=== PATIENT | female | born 1950 | race Caucasian/White ===

== ENCOUNTER → 2023-07-15 | Outpatient (REF) | payer OTHER, SELFPAY | LOC: DHSLP | PROVIDERS: ATTENDING PHYSICIAN Internal Medicine Critical Care Medicine; FAMILY PHYSICIAN Family Medicine | DX: G47.33 Obstructive sleep apnea (adult) (pediatric) (principal); R06.83 Snoring | CPT/HCPCS: 95800 ==

== ENCOUNTER → 2023-09-13 10:26 | Outpatient (REF) | payer OTHER, SELFPAY | LOC: HWRAD 10:26 | PROVIDERS: ATTENDING PHYSICIAN Internal Medicine Critical Care Medicine; FAMILY PHYSICIAN Family Medicine | DX: J44.9 Chronic obstructive pulmonary disease, unspecified (principal); R06.02 Shortness of breath; Z86.16 Personal history of COVID-19 | CPT/HCPCS: 71250 ==

== ENCOUNTER → 2023-10-17 14:56 | Outpatient (REF) | payer OTHER, SELFPAY | LOC: HWRAD 14:56 | PROVIDERS: ATTENDING PHYSICIAN Otolaryngology; FAMILY PHYSICIAN Family Medicine | DX: J32.0 Chronic maxillary sinusitis (principal); R09.81 Nasal congestion | CPT/HCPCS: 70486 ==

== ENCOUNTER → 2024-04-24 08:57 | Outpatient (REF) | payer OTHER, SELFPAY | LOC: HWRAD 08:57 | PROVIDERS: ATTENDING PHYSICIAN Family Medicine | DX: N39.0 Urinary tract infection, site not specified (principal); D17.71 Benign lipomatous neoplasm of kidney | CPT/HCPCS: 76775 ==

== ENCOUNTER → 2024-10-09 16:36 | Outpatient (REF) | payer OTHER, SELFPAY | LOC: RAD 16:36 | PROVIDERS: ATTENDING PHYSICIAN Family Medicine | DX: I82.4Y2 Acute embolism and thrombosis of unspecified deep veins of left proximal lower extremity (principal) | CPT/HCPCS: 93971 ==

== ENCOUNTER 2024-10-10 04:22 | Inpatient (IN) | payer OTHER, SELFPAY ==
[2024-10-09 18:53] VITALS: BP 162/74
[2024-10-10] VITALS (31 sets, daily range): BP systolic 104–145; BP diastolic 47–89; BMI 24.5; BMI 23.9
[2024-10-10 00:41] LABS: % Basophils 0.5 % (0-2); % Eosinophils 2.9 % (0-6); % Immature Granulocytes 0.4 % (0-0.5); % Lymphocytes 24.1 % (20.5-51.1); % Monocytes 9.8 % (1.7-9.3); % Neutrophils 62.3 % (42.2-75.2); Absolute Basophils 0.1 10^3/uL (0-0.2); Absolute Eosinophils 0.4 10^3/uL (0-0.7); Absolute Immature Granulocytes 0.1 10^3/uL (0-0.05); Absolute Monocytes 1.2 10^3/uL (0.1-0.6); Absolute Neutrophils 7.6 10^3/uL (1.4-6.5); Hematocrit 39.5 % (37.0-47.0); Hemoglobin 12.5 g/dL (12.0-16.0); Mean Corp Hgb Conc. 31.6 g/dL (33.0-37.0); Mean Corpuscular Volume 91.6 fL (81.0-99.0); Nucleated Red Blood Cells % 0 %; Platelet Count 239 10^3/uL (130-400); Red Blood Cell Count 4.31 10^6/uL (4.20-5.40); Red Cell Dist. Width 14.9 % (11.5-14.5); White Blood Cell Count 12.2 10^3/uL (4.8-10.8)
[2024-10-10 01:00] LABS: INR 0.98; PT 13.3 Sec (11.4-14.6)
[2024-10-10 01:01] LABS: ALT (SGPT) 15 U/L (0-35); APTT 27.5 Sec (23.4-35.0); AST (SGOT) 29 U/L (14-36); Albumin 4.8 g/dl (3.5-5.0); Alkaline Phosphatase 97 U/L (38-126); Blood Urea Nitrogen 16 mg/dl (7-17); Calcium 9.7 mg/dl (8.4-10.2); Carbon Dioxide 22 mmol/L (22-30); Chloride 102 mmol/L (98-107); Glucose 92 mg/dl (70-99); Potassium 4.3 mmol/L (3.5-5.1); Sodium 138 mmol/L (135-145); Total Bilirubin 1.6 mg/dl (0.2-1.3); Total Protein 7.5 g/dl (6.3-8.2); eGFR > 60.00
[2024-10-10 01:10] LABS: Troponin I < 0.012 ng/ml
--- NOTE | 2024-10-10 01:16 | ED.GENMED ---
History of Present Illness
<Ines Ornelas DO - Last Filed: 10/10/24 17:20>
General
Chief Complaint: DVT/Possible Blood Clot
Time Seen by Provider: 10/09/24 23:50
History of Present Illness
History of Present Illness:
74-year-old female without any significant past medical history presenting to the emergency department for left lower extremity swelling. Patient reports symptoms started about 2 days ago. Denies any inciting trauma. Denies any recent immobility
or surgery. Reports pain from the thigh to the foot. Denies any history of blood clots. She was sent to the hospital for an outpatient ultrasound today to rule out DVT which was noted to be positive, so subsequently sent to the ER. Denies
numbness or tingling to the extremity. Denies fever. Denies chest pain or difficulty breathing. Denies any known clotting issues. Denies any additional acute medical
Past History
<Ines Ornelas DO - Last Filed: 10/10/24 17:20>
Past History
ED Past Medical History: None
ED Past Surgical History: Appendectomy and Orthopedic
Social History
Tobacco: Former smoker
Phy Exam
<Ines Ornelas DO - Last Filed: 10/10/24 17:20>
Physical Exam
Physical Exam:
General: Well-appearing, no clinical signs of dehydration, nontoxic and in no acute distress
HEENT: protecting airway
Neck: appears supple
CV: Normal heart rate, regular rhythm
Resp: No accessory muscle use, no increased work of breathing, lungs clear to auscultation bilaterally
Abd: No distention
Extremities: Swelling to the left lower extremity comparison to the right with erythema and slight warmth. Distal pulses and sensation intact. Generalized tenderness on palpation
Neuro: alert, no focal neurologic deficit
: deferred
Rectal: deferred
Psych: Normal affect
Skin: Intact
Course
<Ines Ornelas DO - Last Filed: 10/10/24 17:20>
Orders/Labs/Results
Orders:
Orders
10/10/24 00:08
Electrocardiogram (*1) Urgent
Reason for Study: Other
Other Reason for Exam: DVT
EKG- Treatment ONCE
10/10/24 00:32
Complete Blood Count/With Diff Urgent
Comprehensive Metabolic Panel Urgent
Fibrinogen Urgent
Comment: ADD ON
PTT Urgent
Prothrombin Time Urgent
Troponin I Urgent
10/10/24 01:15
Ct Cta A/P W/Wo Urgent
Reason For Exam: CT Venogram, L-DVT, evaluate for external iliac thrombus
10/10/24 03:29
Heparin 5,000 units IV NOW STA
Nursing to Place Non Medication Order As Directed
Physician Order: PTT 6 hours after initial start of Heparin infusion
Above order entered?: Yes
10/10/24 03:30
Heparin 10865 Units/250 ml 25,000 units in 250 ml IV PER PROTOCOL
Weight to be used for heparin protocol in kilograms (kg):: 62.6
Protocol:: DVT/PE
PTT Goal Range to be used:: PTT 73 to 111 seconds
Order type:: Initial
INITIAL Infusion Dose (UNITS/KG/hr) & then follow protocol:: 18 units/kg/hr
Infusion Dose in UNITS/hr & then follow protocol (UNITS/hr):: 1,100
INFUSION RATE in mL/hr & then follow protocol (mL/hr):: 11
For DVT/PE algorithm, re-bolus for low PTT?: Yes
PTT less than or equal to 64 seconds:: Re-bolus 80 units/kg (max 10,000units). Increase by 300 units/hr
(+ 3mL/hr)
PTT 64.1 to 72.9 seconds:: Re-bolus 40 units/kg (max 5,000 units). Increase by 100 units/hr
(+ 1mL/hr)
PTT 73 to 111 seconds:: Target Range. No change in rate.
PTT 111.1 to 130.9 seconds:: Decrease rate by 100 units/hr (- 1 mL/hr)
PTT 131 to 199.9 seconds:: HOLD for 1 hr. Then decrease by 200 units/hr (- 2mL/hr)
PTT greater than or equal to 200 seconds:: HOLD for 2 hrs & Notify Provider. Then decrease by 300 units/hr
(- 3mL/hr)
Lab follow-up:: Each change, PTT q6h until 2 consecutive are therapeutic. Then
PTT daily.
10/10/24 03:35
Heparin 5,000 units IV PRN PRN
10/10/24 03:36
Heparin 2,500 units IV PRN PRN
10/10/24 04:07
Admit/Transfer Patient As Directed
Co-Sign Provider:
Level of Care: Inpatient admission
Assign to:: Medical/Surgical
Physician / Group: hospitalist
Diagnosis: Left lower extremity DVT
Reason for Hospitalization: left lower extremity DVT
Expected length of stay greater than two midnights?: Yes
ELOS- Estimated Length of Stay in days: 2
I certify the patient meets the requirements for IP care: Yes
10/10/24 04:08
PRN Pain Medication Management As Directed
May give lesser potent ordered pain med per pt: Yes
preference::
Protocol:: Medication orders for pain may be administered in a
manner that supports deferring to patient preference
when the pt is:
- Requesting an ordered lesser potent pain medication.
Least to most potent pain medications are defined
as: acetaminophen < NSAID < tramadol < opioids
(morphine, oxycodone, hydromorphone).
- Requesting a lesser dose of the same medication IF
ORDERED.
- Requesting a less intrusive route of administration
if both routes are prescribed by the provider (PO <
IV).
10/10/24 04:09
Code Status As Directed
Resuscitation Status: Full Code
10/10/24 Breakfast
NPO
Allow oral meds: Yes
Allow clear liquids: Sips of Clears
NPO with Ice Chips: Yes
10/10/24 06:18
Acetaminophen [Tylenol] 650 mg PO Q4HPRN PRN
Bisacodyl [Dulcolax] 10 mg RECTAL [id number] PRN
Docusate W/Senna [Senokot-S] 1 tablet PO BIDPRN PRN
Ketorolac [Toradol] 10 mg IV Q6HPRN PRN
Ondansetron Injectable [Zofran] 4 mg IV Q6HPRN PRN
Polyethylene Glycol Powder [Miralax] 17 grams PO DAILYPRN PRN
10/10/24 06:18
Vascular Surgery Consult Routine
Consulting Provider: Mariola Oh
Was physician already notified: Yes
Reason for consult: extensive DVT on left involving int & ext iliacs
VTE Contraindication Routine
VTE Mechanical Device Contraindication: Medical Contraindication
Pharmocologic Contraindication: Medical Contraindication
Heparin Protocol- PTT Orders As Directed
PTT per Heparin protocol: -Obtain CBC and baseline PTT - if not already collected.
-Obtain PTT 6 hours from start of infusion. Then, every 6 hours until 2 consecutive
PTT's are therapeutic. Then, PTT Daily.
-With each rate change, obtain PTT every 6 hours until 2 consecutive PTT's are
therapeutic. Then, PTT Daily.
Activity As Directed
Activity Level: As Tolerated
Notify MD As Directed
Notify physician if: PTT is greater than or equal to 200.
Vital Signs As Directed
Frequency: Per unit guidelines
10/10/24 08:00
Budesonide/Formoterol 160/4.5 [Symbicort 160/4.5 Mcg Inhaler] 2 puff INH R BID
10/10/24 09:51
Fibrinogen Routine
PTT Routine
Prothrombin Time Routine
Is patient on Coumadin/Warfarin?: Unknown
Comment: ADD ON TO MORNING LABS
10/12/24 06:00
Complete Blood Count/No Diff Q2D
Comment: notify provider: Platelet count < 130,000 or decrease by 50% from baseline
10/14/24 06:00
Complete Blood Count/No Diff Q2D
Comment: notify provider: Platelet count < 130,000 or decrease by 50% from baseline
10/16/24 06:00
Complete Blood Count/No Diff Q2D
Comment: notify provider: Platelet count < 130,000 or decrease by 50% from baseline
10/18/24 06:00
Complete Blood Count/No Diff Q2D
Comment: notify provider: Platelet count < 130,000 or decrease by 50% from baseline
10/20/24 06:00
Complete Blood Count/No Diff Q2D
Comment: notify provider: Platelet count < 130,000 or decrease by 50% from baseline
10/22/24 06:00
Complete Blood Count/No Diff Q2D
Comment: notify provider: Platelet count < 130,000 or decrease by 50% from baseline
10/24/24 06:00
Complete Blood Count/No Diff Q2D
Comment: notify provider: Platelet count < 130,000 or decrease by 50% from baseline
10/26/24 06:00
Complete Blood Count/No Diff Q2D
Comment: notify provider: Platelet count < 130,000 or decrease by 50% from baseline
Abnormal Lab Results
10/10/24
00:32
WBC 12.2 H 10^3/uL
(4.8-10.8)
MCHC 31.6 L g/dL
(33.0-37.0)
RDW 14.9 H %
(11.5-14.5)
Abs Immat Gran (auto) 0.1 H 10^3/uL
(0-0.05)
Absolute Neuts (auto) 7.6 H 10^3/uL
(1.4-6.5)
Absolute Monos (auto) 1.2 H 10^3/uL
(0.1-0.6)
Monocytes % 9.8 H %
(1.7-9.3)
Fibrinogen 490 H MG/DL
(199-459)
Total Bilirubin 1.6 H mg/dl
(0.2-1.3)
10/10/24 00:32
10/10/24 00:32
Vital Signs
Initial and Last Documented VS:
Initial Vital Signs
Temp Pulse Resp BP Pulse Ox
97.9 F 89 18 162/74 97
10/09/24 18:53 10/09/24 18:53 10/09/24 18:53 10/09/24 18:53 10/09/24 18:53
Last Documented Vital Signs
Temp Pulse Resp BP Pulse Ox
99.3 F 85 19 122/59 98
10/10/24 15:00 10/10/24 14:15 10/10/24 14:15 10/10/24 14:15 10/10/24 15:09
<Vanessa Sherwood, DO - Last Filed: 10/10/24 06:33>
Orders/Labs/Results
Orders:
Orders
10/10/24 00:08
Electrocardiogram (*1) Urgent
Reason for Study: Other
Other Reason for Exam: DVT
EKG- Treatment ONCE
10/10/24 00:32
Complete Blood Count/With Diff Urgent
Comprehensive Metabolic Panel Urgent
Fibrinogen Urgent
Comment: ADD ON
PTT Urgent
Prothrombin Time Urgent
Troponin I Urgent
10/10/24 01:15
Ct Cta A/P W/Wo Urgent
Reason For Exam: CT Venogram, L-DVT, evaluate for external iliac thrombus
10/10/24 03:29
Heparin 5,000 units IV NOW STA
Nursing to Place Non Medication Order As Directed
Physician Order: PTT 6 hours after initial start of Heparin infusion
Above order entered?: Yes
10/10/24 03:30
Heparin 79619 Units/250 ml 25,000 units in 250 ml IV PER PROTOCOL
Weight to be used for heparin protocol in kilograms (kg):: 62.6
Protocol:: DVT/PE
PTT Goal Range to be used:: PTT 73 to 111 seconds
Order type:: Initial
INITIAL Infusion Dose (UNITS/KG/hr) & then follow protocol:: 18 units/kg/hr
Infusion Dose in UNITS/hr & then follow protocol (UNITS/hr):: 1,100
INFUSION RATE in mL/hr & then follow protocol (mL/hr):: 11
For DVT/PE algorithm, re-bolus for low PTT?: Yes
PTT less than or equal to 64 seconds:: Re-bolus 80 units/kg (max 10,000units). Increase by 300 units/hr
(+ 3mL/hr)
PTT 64.1 to 72.9 seconds:: Re-bolus 40 units/kg (max 5,000 units). Increase by 100 units/hr
(+ 1mL/hr)
PTT 73 to 111 seconds:: Target Range. No change in rate.
PTT 111.1 to 130.9 seconds:: Decrease rate by 100 units/hr (- 1 mL/hr)
PTT 131 to 199.9 seconds:: HOLD for 1 hr. Then decrease by 200 units/hr (- 2mL/hr)
PTT greater than or equal to 200 seconds:: HOLD for 2 hrs & Notify Provider. Then decrease by 300 units/hr
(- 3mL/hr)
Lab follow-up:: Each change, PTT q6h until 2 consecutive are therapeutic. Then
PTT daily.
10/10/24 03:35
Heparin 5,000 units IV PRN PRN
10/10/24 03:36
Heparin 2,500 units IV PRN PRN
10/10/24 04:07
Admit/Transfer Patient As Directed
Co-Sign Provider:
Level of Care: Inpatient admission
Assign to:: Medical/Surgical
Physician / Group: hospitalist
Diagnosis: Left lower extremity DVT
Reason for Hospitalization: left lower extremity DVT
Expected length of stay greater than two midnights?: Yes
ELOS- Estimated Length of Stay in days: 2
I certify the patient meets the requirements for IP care: Yes
10/10/24 04:08
PRN Pain Medication Management As Directed
May give lesser potent ordered pain med per pt: Yes
preference::
Protocol:: Medication orders for pain may be administered in a
manner that supports deferring to patient preference
when the pt is:
- Requesting an ordered lesser potent pain medication.
Least to most potent pain medications are defined
as: acetaminophen < NSAID < tramadol < opioids
(morphine, oxycodone, hydromorphone).
- Requesting a lesser dose of the same medication IF
ORDERED.
- Requesting a less intrusive route of administration
if both routes are prescribed by the provider (PO <
IV).
10/10/24 04:09
Code Status As Directed
Resuscitation Status: Full Code
10/10/24 Breakfast
NPO
Allow oral meds: Yes
Allow clear liquids: Sips of Clears
NPO with Ice Chips: Yes
10/10/24 06:18
Acetaminophen [Tylenol] 650 mg PO Q4HPRN PRN
Bisacodyl [Dulcolax] 10 mg RECTAL [id number] PRN
Docusate W/Senna [Senokot-S] 1 tablet PO BIDPRN PRN
Ketorolac [Toradol] 10 mg IV Q6HPRN PRN
Ondansetron Injectable [Zofran] 4 mg IV Q6HPRN PRN
Polyethylene Glycol Powder [Miralax] 17 grams PO DAILYPRN PRN
10/10/24 06:18
Vascular Surgery Consult Routine
Consulting Provider: Mariola Oh
Was physician already notified: Yes
Reason for consult: extensive DVT on left involving int & ext iliacs
VTE Contraindication Routine
VTE Mechanical Device Contraindication: Medical Contraindication
Pharmocologic Contraindication: Medical Contraindication
Heparin Protocol- PTT Orders As Directed
PTT per Heparin protocol: -Obtain CBC and baseline PTT - if not already collected.
-Obtain PTT 6 hours from start of infusion. Then, every 6 hours until 2 consecutive
PTT's are therapeutic. Then, PTT Daily.
-With each rate change, obtain PTT every 6 hours until 2 consecutive PTT's are
therapeutic. Then, PTT Daily.
Activity As Directed
Activity Level: As Tolerated
Notify MD As Directed
Notify physician if: PTT is greater than or equal to 200.
Vital Signs As Directed
Frequency: Per unit guidelines
10/10/24 08:00
Budesonide/Formoterol 160/4.5 [Symbicort 160/4.5 Mcg Inhaler] 2 puff INH R BID
10/10/24 09:51
Fibrinogen Routine
PTT Routine
Prothrombin Time Routine
Is patient on Coumadin/Warfarin?: Unknown
Comment: ADD ON TO MORNING LABS
10/12/24 06:00
Complete Blood Count/No Diff Q2D
Comment: notify provider: Platelet count < 130,000 or decrease by 50% from baseline
10/14/24 06:00
Complete Blood Count/No Diff Q2D
Comment: notify provider: Platelet count < 130,000 or decrease by 50% from baseline
10/16/24 06:00
Complete Blood Count/No Diff Q2D
Comment: notify provider: Platelet count < 130,000 or decrease by 50% from baseline
10/18/24 06:00
Complete Blood Count/No Diff Q2D
Comment: notify provider: Platelet count < 130,000 or decrease by 50% from baseline
10/20/24 06:00
Complete Blood Count/No Diff Q2D
Comment: notify provider: Platelet count < 130,000 or decrease by 50% from baseline
10/22/24 06:00
Complete Blood Count/No Diff Q2D
Comment: notify provider: Platelet count < 130,000 or decrease by 50% from baseline
10/24/24 06:00
Complete Blood Count/No Diff Q2D
Comment: notify provider: Platelet count < 130,000 or decrease by 50% from baseline
10/26/24 06:00
Complete Blood Count/No Diff Q2D
Comment: notify provider: Platelet count < 130,000 or decrease by 50% from baseline
Abnormal Lab Results
10/10/24
00:32
WBC 12.2 H 10^3/uL
(4.8-10.8)
MCHC 31.6 L g/dL
(33.0-37.0)
RDW 14.9 H %
(11.5-14.5)
Abs Immat Gran (auto) 0.1 H 10^3/uL
(0-0.05)
Absolute Neuts (auto) 7.6 H 10^3/uL
(1.4-6.5)
Absolute Monos (auto) 1.2 H 10^3/uL
(0.1-0.6)
Monocytes % 9.8 H %
(1.7-9.3)
Fibrinogen 490 H MG/DL
(199-459)
Total Bilirubin 1.6 H mg/dl
(0.2-1.3)
10/10/24 00:32
10/10/24 00:32
Vital Signs
Initial and Last Documented VS:
Initial Vital Signs
Temp Pulse Resp BP Pulse Ox
97.9 F 89 18 162/74 97
10/09/24 18:53 10/09/24 18:53 10/09/24 18:53 10/09/24 18:53 10/09/24 18:53
Last Documented Vital Signs
Temp Pulse Resp BP Pulse Ox
99.3 F 85 19 122/59 98
10/10/24 15:00 10/10/24 14:15 10/10/24 14:15 10/10/24 14:15 10/10/24 15:09
<Ines Ornelas DO - Last Filed: 10/10/24 17:20>
MDM/Problems Addressed
MDM/Problems Addressed:
74-year-old female without significant past medical history presenting for known left lower extremity DVT with pain and swelling. Vital signs are significant for mild hypertension, however resolved without intervention.
On exam patient is resting comfortably, no acute distress or discomfort. She is presently hemodynamically stable. Ultrasound obtained outpatient, reviewed with significant thrombus burden to the left common femoral, popliteal, peroneal, posterior
tibial. Without present concern for PE. Patient denies chest pain or difficulty breathing. No tachycardia, no hypotension. In discussion with vascular surgery regarding if thrombus candidate, recommending CT angio of the abdomen and pelvis.
Will also obtain the chest to ensure no PE. Plan for screening laboratory analysis. Per vascular, if thrombus does not include external iliac, can be treated with outpatient anticoagulation.
<Ines Ornelas DO - Last Filed: 10/10/24 17:20>
*EKG
Interpreted by ED Provider?: Yes
EKG Intrepretation Date: 10/10/24
EKG Intrepretation Time: :
Interpretation: normal
Heart Rate: 80
Rate: normal
Rhythm: sinus
[place]: normal axis
Interval: normal interval
QRS Pattern: normal QRS
Ischemia: no ischemia
*Critical Care Note
Total Time (30-74mins, 75-104mins- exclusive of procedures): Not Applicable
<Vanessa Sherwood DO - Last Filed: 10/10/24 06:33>
*Radiology
Radiology exam reviewed: radiology read reviewed (CTA abdomen/pelvis shows DVT in the left internal and external iliac veins which are expanded.)
*Pulse Oximetry
Patient hypoxic: no
<Vanessa Sherwood DO - Last Filed: 10/10/24 06:33>
Update Note
Update Note:
03:30
CTA abdomen/pelvis shows DVT involving the left internal and external iliac veins which are expanded.
As per recommendations from vascular surgery, will admit to hospital service, initiate heparin drip and keep n.p.o. status.
ED Attending Note
<Ines Ornelas DO - Last Filed: 10/10/24 17:20>
-
Portions of this chart may have been created with voice recognition software.� Occasional wrong word or��sound alike� substitutions may have occurred due to the inherent limitations of voice recognition software.
Discharge Plan
Departure
Patient Disposition: Admit
Date of Disposition: 10/10/24
Time of Disposition: 03:28
Admit to: Med/Surg
Admit to doctor: Jocy
Presentation/result/management discussed w/ accepting MD/DO: Hospitalist
Condition: Serious
Discharge Problem:
extensive LLE DVT
Interventions
Interventions:
*Risk Screen - Suicide Last Done: 10/09/24 18:53
*General Assessment Last Done: 10/09/24 18:53
*Neglect/Abuse Screening Last Done: 10/09/24 18:53
ED- Fall Risk Assessment Last Done: 10/10/24 04:10
*ED COVID-19 Vaccine History Last Done: 10/10/24 00:35
*Nursing Disposition Last Done: 10/10/24 05:49
ED- Cardiac Assessment Last Done: 10/10/24 04:10
ED- Pulmonary Assessment Last Done: 10/10/24 04:10
ED-Peripheral Vascular Assessment Last Done: 10/10/24 04:10
ED-Skin Assessment Last Done: 10/10/24 04:10
Discharge Date and Time
Discharge Date/Time: 10/10/24 05:49
--- NOTE | 2024-10-10 03:33 | EDRN ---
Called pharmacy to verify heparin infusion
[2024-10-10] MEDS: HEPARIN 5000 UNITS IV (03:48)
[2024-10-10] MEDS: HEPARIN 25000 UNITS/250 ML IV (03:48)
--- NOTE | 2024-10-10 03:56 | HPS.HSE ---
Family Physician
-
Family Physician: Asa Tucker
Chief Complaint
-
Left leg swelling
History of Present Illness
This is a 74-year-old female with past medical history of prior appendicitis status post appendectomy and status post cholecystectomy presents to the emergency department with 2 days of left lower extremity swelling.
Patient reports sudden onset of swelling just in the left lower extremity with mild erythema. She was evaluated by our physician who recommended ultrasound showing a DVT for which she was referred to the emergency department because it was a
somewhat extensive. Patient denies any prior history of blood clots. She has no recent hospitalizations. She has no recent travel. She had no recent immobilization or injuries. She has no family history of clotting or bleeding disorders. She
denies any medications except for occasional use of inhalers. She has been active as she usually is. She reports some inguinal pain on the left for the last 2 days as well. Denies any urinary symptoms. She reports right lower abdominal/flank
pain for several weeks to months that is intermittent and associated with movement occasionally.
She has no prior history of malignancy.
In the emergency department she was afebrile, blood pressure was 134/67 with a pulse of 94 and she was satting at 98% on room air. ECG showed normal sinus rhythm at a rate of 80. Troponin was 0.012. CBC was unremarkable with a white count of
12.2. Electrolytes BUN/creatinine were all in normal range. LFTs were normal except for slight elevation in total bilirubin to 1.6.
She had a CT of the abdomen pelvis with contrast showing DVT in the left internal and external iliac veins which have expanded, nonocclusive thrombus in the left common femoral and femoral veins which could incompletely assessed, left common iliac
vein is decreased in size behind the left common iliac artery, does not opacify normally suggested that there may be a component of May-Thurner syndrome
Medical History
Past Medical History
Past Medical History: Reports None
Past Surgical History: Reports Appendectomy, Cholecystectomy and Orthopedic
Social History
Tobacco: Former Smoker
Alcohol: Occasional
Drug: None
Personal:
Living: With Family
Employment: Employed
Family History
Family History: Not pertinent
Allergies / Home Medications
Allergies reflects when Allergies were last updated in [employer].
Home Medications with original date entered in [employer]
Allergy/Medication List:
Allergies
Allergy/AdvReac Type Severity Reaction Status Date / Time
acetaminophen [From Percocet] Allergy Unknown Verified 10/10/24 00:41
oxycodone [From Percocet] Allergy Unknown Verified 10/10/24 00:41
Sulfa (Sulfonamide Allergy Unknown Verified 10/10/24 00:41
Antibiotics)
Home Medications
budesonide 160 mcg-glycopyr 9 mcg-formot 4.8 mcg/actuation HFA inhaler ([employer]) 2 inh inhalation BID 10/10/24
Review of Systems
-
History Source: Patient
Constitutional: Reports No Symptoms
EENT: Reports No Symptoms
Respiratory: Reports No Symptoms
Cardiac: Reports No Symptoms
Abdomen/GI: Reports No Symptoms
: Reports No Symptoms
Musculoskeletal: Reports Joint Pain
Skin: Reports Rash
Neurological: Reports No Symptoms
Endocrine: Reports No Symptoms
Hematologic/Lymphatic: Reports No Symptoms
Psych: Reports No Symptoms
Physical Exam
Vital Signs
Vital Signs
Temp Pulse Resp BP Pulse Ox
97.9 F 94 19 134/67 93
10/09/24 18:53 10/10/24 03:00 10/10/24 03:00 10/10/24 03:00 10/10/24 03:00
Physical Exam
General: Well Developed, Well Nourished, No Apparent Distress and Comfortable
HEENT: NormoCephalic, Anicteric, Moist mucous membranes and Atraumatic
Respiratory: Clear
Cardiac: S1/S2 and Regular Rhythm
Breast: Deferred by me
GI: Soft, Non Tender, Non Distended and Normal Bowel Sounds
Rectal: Deferred by Provider
Genito-urinary: Deferred by me
Musculoskeletal: No Clubbing, No Cyanosis and Edema, Left Lower Extremity
Skin: Warm and Dry
Neuro: AO x 3 and Nonfocal/grossly intact
Hematologic/Lymphatic: No Lymphadenopathy
Psych: Calm
Laboratory Results
-
10/10/24 00:32
10/10/24 00:32
Laboratory Results
PT 13.3 Sec (11.4-14.6) 10/10/24 00:32
INR 0.98 10/10/24:32
APTT 27.5 Sec (23.4-35.0) 10/10/24 00:32
Total Bilirubin 1.6 mg/dl (0.2-1.3) H 10/10/24 00:32
AST 29 U/L (14-36) 10/10/24 00:32
ALT 15 U/L (0-35) 10/10/24 00:32
Alkaline Phosphatase 97 U/L (38-126) 10/10/24 00:32
Troponin I < 0.012 ng/ml 10/10/24 00:32
Data Reviewed
-
CT Scan: Report Reviewed by me
Medical Tests (Nuc Med, Echo, EKG etc): Image Personally Visualized and interpreted
Lab Data: Labs Reviewed by me
Old Records: Reviewed
Impression/Plan
-
IMPRESSION:
74 y.o female with left leg swelling x 2 days, new onset DVT found that appears unprovoked. 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
findings. No dolens on exam but CT scan shows fairly exensive clot. No SOB, CURTIS, chest pain. ECG normal. Troponin normal.
PLAN:
1. DVT - New onset DVT with possible May-Thurner syndrome. Extensive clot burden without dolens.
- admit to med/surg
- start heparin gtt for now
- vascular surgery notified clot involving internal and external iliacs and possible may-thurner
- NPO
- recommend routine age and risk appropriate screening: Xray, colonosocpy and mammogram as outpatient
- would await vascular eval before pursuing further hypercoag w/u
Code status - Full code
[2024-10-10 06:48] LABS: Fibrinogen 490 MG/DL (199-459)
[2024-10-10] MEDS: SYMBICORT 160/4.5 MCG INHALER 2 PUFF INH ×2 (07:49→19:58)
[2024-10-10] MEDS: SPIRIVA RESPIMAT 2.5 MCG 2 PUFF INH (07:49)
--- NOTE | 2024-10-10 10:05 | W.SUR.PREOP ---
Pre-Operative Surgical Note
-
I have examined this patient prior to the performance of the scheduled procedure.
The patient's condition is unchanged from the time of the current History and
Physical and the patient is able to undergo the scheduled procedure.
--- NOTE | 2024-10-10 10:05 | CON.VAS ---
Consultation
Consultation Request
Date/Time Consultation Performed: 10/10/2024
Performing Provider: Mariola Oh MD
Reason for Consultation: LLE DVT
Medical History
-
Chief Complaint: L leg edema
History of Present Illness:
2d hx of LLE edema and pain
venous duplex with extensive LLE DVT
CTV with L CIV and EIV clot down into leg, May thurner compression by artery
Past Medical History
Past Medical History: None
Past Surgical History: Appendectomy
Social History
Tobacco: Non-Smoker
Family History
Family History: Reviewed & Not Pertinent
Allergies / Home Medications
Allergy/AdvReac Type Severity Reaction Status Date / Time
acetaminophen [From Percocet] Allergy Unknown Verified 10/10/24 00:41
oxycodone [From Percocet] Allergy Unknown Verified 10/10/24 00:41
Sulfa (Sulfonamide Allergy Unknown Verified 10/10/24 00:41
Antibiotics)
�Medication �Instructions �Recorded �Confirmed �Type
budesonide 160 mcg-glycopyr 9 2 inh inhalation BID 10/10/24 10/10/24 History
mcg-formot 4.8 mcg/actuation HFA
inhaler (Breztri Aerosphere)
Physical Exam
Vital Signs
Temp Pulse Resp BP Pulse Ox
98 F 88 16 135/67 97
10/10/24 07:00 10/10/24 07:53 10/10/24 07:53 10/10/24 07:00 10/10/24 07:53
Lab Results
10/10/24 00:32
10/10/24 00:32
Troponin I < 0.012 ng/ml 10/10/24 00:32
Physical Exam
General: Well Developed and Well Nourished
HEENT: Normocephalic
Respiratory: Clear
GI: Soft and Non Tender
Musculoskeletal: Edema (mild LLE edema) and Other (no cyanosis, compartments soft)
Skin: Warm
Neuro: AO x 3
Assessment / Plan
-
LLE DVT with CIV and EIV involvement and May Thurner compression
- NPO
- heparin gtt
- OR for lytic catheter placement
- plan for second look and IVUS with likely stent in 24h
Data Reviewed
-
CT Scan: Image Personally Visualized and interpreted
Ultrasound: Image Personally Visualized and interpreted
Labs: Labs Reviewed by me
[2024-10-10] MEDS: CATHFLO/ACTIVASE INF CATH ×2 (11:43)
[2024-10-10] MEDS: NSS INF CATH (11:43)
[2024-10-10] MEDS: NSS 1000 IV (12:00)
[2024-10-10 12:13] LABS: Fibrinogen 490 MG/DL (199-459)
--- NOTE | 2024-10-10 12:29 | PTCARENOTE ---
10/10/24 1230 Report given to DIRECTOR BIOMEDICAL ENGINEERING-Omer. Patient went to vascular Lab for procedure, went to ICU post-op. Pt was on IV Heparin drip prior to procedure. Pt AAO x3. Pt with no complaints prior to procedure except for some pain at L groin area ([place]). VSS, Afebrile
--- NOTE | 2024-10-10 15:13 | PTCARENOTE ---
pt arrived from pacu with left pop venous sheath intact. heparin and alteplase running into sheath. ivf running perif. left dp pt pulses by doppler. pt states no pain. nc2l. breath sounds diminished. nsr seen on monitor.
[2024-10-10] MEDS: TYLENOL 650 MG PO (15:23)
[2024-10-10 15:35] LABS: INR 1.09; PT 14.4 Sec (11.4-14.6)
[2024-10-10] MEDS: CATHFLO/ACTIVASE 16 ML INF CATH ×3 (15:37→23:17)
[2024-10-10] MEDS: CATHFLO/ACTIVASE 16 MG INF CATH ×3 (15:37→23:17)
--- NOTE | 2024-10-10 16:34 | W.PN.HOSP.TC ---
Addendum entered and electronically signed by Mckenna Urena MD 10/10/24 17:59:
I saw and evaluated the patient independently. I reviewed the resident�s note and agree with findings and plan as documented by Dr. Vargas.
GENERAL: well developed, well nourished, female in no apparent distress lying flat post vascular OR
HEENT: NC/AT--O2 NC in place
HEART: regular rate and rhythm, +S1, +S2
LUNGS : clear to auscultation bilaterally
ABDOM: soft, nontender, nondistended, + bowel sounds
EXT: no cyanosis, clubbing, or edema right leg--left leg with edema from groin to foot
NEUROLOGIC: grossly intact
unprovoked DVT - New onset DVT, extensive, involving L internal and external iliac veins, left common femoral vein, popliteal vein, peroneal vein and posterior tibial vein. Possible May-Thurner syndrome--apprec vascular/talk show host---s/p lytic
catheter placement. For IVUS and potentially stenting tomorrow--Continue Heparin drip-- NPO from midnight
DVT proph-- On heparin drip
Code status - Full code
Original Note:
Today's Communication/Plan
-
Status post lytic catheter-Alteplase. Continue Heparin drip
Assessment / Plan
Assessment / Plan
74 y.o female with extensive unprovoked LLE DVT with CT A/P suggestive of May-Thurner syndrome.
DVT - New onset DVT, extensive, involving L internal and external iliac veins, left common femoral vein, popliteal vein, peroneal vein and posterior tibial vein. 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
-s/p lytic catheter placement. For IVUS and potentially stenting tomorrow
-Appreciate vascular surgery
-Continue Heparin drip
- NPO from midnight
DVT ppx: On heparin drip
Code status - Full code
Anticipated Discharge: > 48 hours
Subjective/Interval History
-
Date of Service: October 10, 2024
Objective Data
-
Labs:
Laboratory Results
10/10/24 10/10/24 10/10/24
09:51 11:30 17:30
PT 14.4 Cancelled Cancelled
INR 1.09 Cancelled Cancelled
APTT 183.0 H* Cancelled Cancelled
10/10/24 10/10/24
18:00 23:30
PT Pending Cancelled
INR Pending Cancelled
APTT Pending Cancelled
Vital Signs:
Vital Signs
Temp Pulse Resp BP Pulse Ox
99.3 F 85 19 122/59 98
10/10/24 15:00 10/10/24 14:15 10/10/24 14:15 10/10/24 14:15 10/10/24 15:09
I&O
10/09/24 10/10/24 10/11/24
06:59 06:59 06:59
Intake Total 1126.4 / 1126.4
Balance 1126.4 / 1126.4
Review of Systems
-
History Source: Patient
Constitutional: Denies Fever
Respiratory: Denies Cough or Trouble Breathing
Cardiac: Denies Chest Pain or Palpitations
Abdomen/GI: Denies Abdominal Pain, Nausea, Vomiting, Diarrhea or Constipated
Genitourinary: Denies Dysuria or Difficulty Voiding
Musculoskeletal: Reports Other (inguinal pain)
Skin: Reports Other
Physical Exam
-
General: Well Nourished, No Apparent Distress and Comfortable
HEENT: Normocephalic, Atraumatic, Moist Mucous Membranes and Anicteric
Respiratory: Clear to Auscultation and Non Labored Respirations; Negative Wheezes, Rales, Rhonchi or Crackles
Cardiac: Regular Rhythm and S1/S2; Negative Murmur or Rub
GI: Soft, Nontender, Nondistended and Normal Bowel Sounds
Musculoskeletal: No Clubbing, No Cyanosis and Edema, Left Lower Extrem (from hip to feet. No warmth or tenderness)
Skin: Warm, Dry and Other
Neuro: Awake, Alert and Oriented
Psych: Calm
--- NOTE | 2024-10-10 17:22 | CON.INTV ---
Consultation
Consultation Request
Date/Time Consultation Requested: 10/10/2024
Date/Time Consultation Performed: 10/10/2024
Requesting Provider: Dr. Sandra
Performing Provider: Dr. Olson
Reason for Consultation: s/p OR for lytic catheter placement of LLE
Medical History
-
Chief Complaint: Left leg DVT
History of Present Illness:
74-year-old female with a past medical history of thyroid mass s/p thyroidectomy, history of COVID-19, history of appendicitis s/p appendectomy and a hiatal hernia who presents with 2 days of left lower extremity swelling and found to have a DVT as
an outpatient. She denies any recent travel, history of blood clots or recent hospitalizations. She is not immobile and has no family history of clotting disorders. She uses [facility] as an outpatient for COPD. In the ER she was afebrile to 97.9
�F, pulse rate 89, respiratory rate 18, BP 160/74 and saturating 97% on room air. Labs showed leukocytosis to 12.2, fibrinogen 490, T. bili 1.6, and troponin negative at <0.012. The left lower extremity duplex ultrasound showed extensive DVT from
the left common femoral vein down to the posterior tibial vein. She was initially started on heparin drip and admitted to Med-Surg. Due to the extensive DVT, she had a CT venogram showing a small caliber left common iliac vein as it courses
posterior to the left common iliac artery raising concern for May Thurner syndrome. Vascular surgery then brought the patient to the OR for lytic catheter placement via the left popliteal vein which is infusing tPA into the left common iliac vein.
Patient then transferred to the ICU postoperatively and concrete hopper operator services consulted for additional management/recommendations.
When I saw the patient she was resting in bed in no acute distress. Patient's daughter, Gladys, patient's , Kira, and the patient's granddaughter, Saira, were all at bedside and all questions were answered. Patient's heart rate 75,
SpO2 97% and BP 110/51. Patient has some mild pain at the left groin site but otherwise no chest pain, shortness of breath, headache, nausea, fevers or chills. tPA infusion is running without any issues and no bleeding seen.
PMHx: History of thyroid mass s/p thyroidectomy, history of COVID-19 x 3 (2018, 2021+2022), irregular heartbeat, hiatal hernia
PSHx: Right wrist fracture surgery, laparoscopic cholecystectomy with intraoperative cholangiogram and open primary hernia repair, appendectomy, thyroidectomy, left foot bunion surgery
Past Medical History
Past Medical History: Other (Above as per HPI)
Past Surgical History: Other (Above as per HPI)
Social History
Tobacco: Former Smoker (Quit smoking in 2019, previously smoked 1 PPD x 50 years)
Alcohol: Occasional
Drug: None
Personal:
Living: With Family (=Pat)
Family History
Family History: CAD (Mother)
Allergies / Home Medications
Allergies
Allergy/AdvReac Type Severity Reaction Status Date / Time
oxycodone [From Percocet] Allergy Unknown Verified 10/10/24 00:41
Sulfa (Sulfonamide Allergy Unknown Verified 10/10/24 00:41
Antibiotics)
Home Medications
�Medication �Instructions �Recorded �Confirmed �Last Taken �Type
budesonide 160 mcg-glycopyr 9 2 inh inhalation BID 10/10/24 10/10/24 Unknown History
mcg-formot 4.8 mcg/actuation HFA
inhaler (Breztri Aerosphere)
Review of Systems
-
History Source: Patient
All other systems: Negative unless noted
Vitals / Labs / Diagnostic Testing
Vital Signs
Temp Pulse Resp BP Pulse Ox
99.3 F 85 19 122/59 98
10/10/24 15:00 10/10/24 14:15 10/10/24 14:15 10/10/24 14:15 10/10/24 15:09
Lab Data
10/10/24 00:32
10/10/24 00:32
Laboratory Results
10/10/24 10/10/24 10/10/24
00:32 09:51 11:30
PT 13.3 14.4 Cancelled
INR 0.98 1.09 Cancelled
APTT 27.5 183.0 H* Cancelled
10/10/24 10/10/24
17:30 23:30
PT Cancelled Cancelled
INR Cancelled Cancelled
APTT Cancelled Cancelled
Diagnostic Testing:
Physical Exam
-
HEENT: Normocephalic and Anicteric
Cardiovascular: S1/S2 and Peripheral Edema (+2 LLE, no edema on RLE)
Respiratory: Wheeze (negative), Rales (negative), Rhonchi (negative) and Non-Labored Respirations
GI: Soft, Non Distended, Non Tender and Normal Bowel Sounds
Neurology: AO x 3 and Tremors (negative)
Skin: Warm and Dry
General: Respiratory Distress (negative), Comfortable, Pain (Right groin site), Fever (negative) and Chills (negative)
Assessment
-
Assessment: 74-year-old female with a past medical history of thyroid mass s/p thyroidectomy, history of COVID-19, history of appendicitis s/p appendectomy and a hiatal hernia who presents with 2 days of left lower extremity swelling and found to
have a DVT as an outpatient. She denies any recent travel, history of blood clots or recent hospitalizations. She is not immobile and has no family history of clotting disorders. She uses [facility] as an outpatient for COPD. In the ER she was
afebrile to 97.9 �F, pulse rate 89, respiratory rate 18, BP 160/74 and saturating 97% on room air. Labs showed leukocytosis to 12.2, fibrinogen 490, T. bili 1.6, and troponin negative at <0.012. The left lower extremity duplex ultrasound showed
extensive DVT from the left common femoral vein down to the posterior tibial vein. She was initially started on heparin drip and admitted to Med-Surg. Due to the extensive DVT, she had a CT venogram showing a small caliber left common iliac vein
as it courses posterior to the left common iliac artery raising concern for May Thurner syndrome. Vascular surgery then brought the patient to the OR for lytic catheter placement via the left popliteal vein which is infusing tPA into the left
common iliac vein. Patient then transferred to the ICU postoperatively and concrete hopper operator services consulted for additional management/recommendations.
Chronic conditions [facility] FISHERMAN: History of thyroid mass s/p thyroidectomy, history of COVID-19 x 3 (2019, 2021+2022), irregular heartbeat, hiatal hernia
Impression:
#Extensive left lower extremity DVT with concern for May Thurner syndrome s/p lytic catheter infusion into left common iliac vein which is being compressed by right common iliac artery (POD#0)
#Leukocytosis likely reactive due to above
#Elevated absolute eosinophil count (400 on 10/10/2024)
#Elevated T. bili
#History of COPD/emphysema with mild air trapping and moderately reduced gas exchange capacity on [facility] as an outpatient
#Former tobacco smoker (quit smoking in 2019, previously smoked 1 PPD x 50 years)
#History of lung nodules
#History of COVID-19
#Hiatal hernia
Plan:
- Peripheral left lower extremity duplex ultrasound on 10/09/2024 showed an extensive DVT from the left common femoral vein down to the PT vein. Vascular surgery consulted. CTA abdomen/pelvis on 10/10/2024 showed thrombosis of the left internal and
external iliac veins in the left common femoral and femoral veins with suspected May Thurner syndrome.
- Patient went to the OR today for a lytic catheter, inserted via the left popliteal vein and infusing into the iliac vein. Continue tPA at 1 mg an hour with heparin through the sideport of the sheath at a fixed rate of 500 units/h.
- Fibrinogen and PTT every 6 hours
- If fibrinogen drops <200 then the heparin gtt gets cut in half; if fibrinogen drops <100 then turn off heparin drip
- Keep NPO past midnight as a vascular surgery will take the patient back tomorrow morning for a second look with hopefully removal of the catheter and stenting of the left iliac vein
- Any issues notify the vascular surgeon on-call as well as concrete hopper operator
- Pain control
- Bedrest, lay flat until tommorrow in OR
- Maintain SpO2 >90-94% with supplemental oxygen and wean as tolerated (currently on 2 L/min)
- She is on Breztri as an outpatient, continue with Symbicort + Spiriva for now with prn albuterol
- Aspiration precautions, however unable to keep HOB elevated given the tPA catheter
- Maintain MAP>65
- Replete electrolytes with K>4, Mg>2
- Maintain euglycemia with goal BG 140-180
- Trend H/H and transfuse if needed to keep Hb>7g/dL; keep plt>50k while tPA is infusing
- Once tPA catheter has been removed, incentive spirometer will be encouraged 10x per hour for at least 4 hrs a day
- DVT ppx: heparin gtt
Once she is discharged home, she should continue following up with our office with Dr. Lopez. Last visit on 01/09/2024 and she is due for her next LDCT chest for lung cancer screening (last done in 09/2023)
Continue with ICU level care for this critically ill patient.
Data:
LLE Duplex US 10/09/2024: Extensive deep venous thrombosis of the left lower extremity. Left greater saphenous vein thrombus also noted.
Critical care statement: A total of 37 minutes of critical care time was provided for this patient today. This includes management of unstable vital signs, evaluation of the patient at bedside, reviewing the patient's pertinent medical records
including radiographs, microbiology, laboratory evaluations, and discussion with primary team, consultants, pharmacy, nutrition, physical therapy, case management, charge nurse, critical care nursing, and respiratory therapy.
[2024-10-10 18:16] LABS: INR 1.15
[2024-10-10 18:17] LABS: APTT 35.8 Sec (23.4-35.0); Fibrinogen 434 MG/DL (199-459)
--- NOTE | 2024-10-10 20:00 | PTCARENOTE ---
Patient received in bed, AAOX3, offers no complaints. NSR on monitor,afebrile, blood pressure as documented. Lungs diminished bilaterally, pulse ox 97% on 2L. Abdomen soft, hypoactive bowel sounds. Pure maintained. Left venous popliteal sheath
with Alteplase, Heparin and carrier all infusing as ordered. Left lower extremity +1 edema, left PT/DP present by doppler. #22 g in left hand with IVF infusing as ordered. #18 g in RAC flushed and patent. Plan of care discussed, call pagan within
reach
--- NOTE | 2024-10-10 23:55 | PTCARENOTE ---
Patient rang call pagan and states she awoke from sleep, complaining of abdominal pain. Notified Svetlana SCHREIBER, labs sent, patient transported to CT scan. Assessment unchanged
[2024-10-11] VITALS (31 sets, daily range): BP systolic 104–127; BP diastolic 52–100; BMI 24.6
[2024-10-11] MEDS: NSS 1000 IV ×2 (00:10→14:06)
[2024-10-11] MEDS: TYLENOL 650 MG PO (00:11)
--- NOTE | 2024-10-11 00:16 | W.PN.UPDATE ---
Update Note
Progress Note Update
Patient awoke suddenly with acute diffuse lower abdominal pain rating it 7/10 acute severe stabbing pain. She has been comfortable for most of the night and declined pain medication offered earlier. No specific pain area on exam diffuse lower
abdominal, no rebound tenderness upon palpation. Called and updated Dr. Oh, vascular surgeon, ordered : H&H, bmp, liver function testing, lactic, fibrinogen, PTT, and CT angio abdomen/pelvis STAT. Give prn tylenol and dilaudid for pain.
[2024-10-11 00:19] LABS: Hematocrit 33.6 % (37.0-47.0)
[2024-10-11 00:31] LABS: INR 1.27; PT 16.2 Sec (11.4-14.6)
[2024-10-11 00:32] LABS: APTT 49.9 Sec (23.4-35.0); Fibrinogen 325 MG/DL (199-459)
[2024-10-11 00:33] LABS: Lactic Acid 0.8 mmol/L (0.7-2.0)
[2024-10-11 00:38] LABS: ALT (SGPT) 10 U/L (0-35); AST (SGOT) 16 U/L (14-36); Albumin 3.3 g/dl (3.5-5.0); Alkaline Phosphatase 85 U/L (38-126); Blood Urea Nitrogen 8 mg/dl (7-17); Calcium 8.5 mg/dl (8.4-10.2); Carbon Dioxide 22 mmol/L (22-30); Chloride 107 mmol/L (98-107); Direct Bilirubin 0.2 mg/dl (0.0-0.4); Estimated Creatinine Clearance 69 ml/min; Glucose 98 mg/dl (70-99); Potassium 3.9 mmol/L (3.5-5.1); Sodium 138 mmol/L (135-145); Total Bilirubin 1.5 mg/dl (0.2-1.3); Total Protein 5.5 g/dl (6.3-8.2); eGFR > 60.00
[2024-10-11] MEDS: CATHFLO/ACTIVASE 16 MG INF CATH ×2 (02:50→06:38)
[2024-10-11] MEDS: CATHFLO/ACTIVASE 16 ML INF CATH ×2 (02:50→06:38)
--- NOTE | 2024-10-11 04:00 | PTCARENOTE ---
Patient reassessed, no changes in assessment. Sleeping when not disturbed
[2024-10-11 05:39] LABS: Fibrinogen 265 MG/DL (199-459); INR 1.27; PT 16.2 Sec (11.4-14.6)
[2024-10-11 05:40] LABS: APTT 49.8 Sec (23.4-35.0)
[2024-10-11 05:46] LABS: Hematocrit 32.8 % (37.0-47.0); Hemoglobin 10.6 g/dL (12.0-16.0); Mean Corp Hgb Conc. 32.3 g/dL (33.0-37.0); Mean Corpuscular Hgb 28.7 pg (27.0-31.0); Mean Corpuscular Volume 88.9 fL (81.0-99.0); Mean Platelet Volume 9.9 fL (7.4-10.4); Platelet Count 150 10^3/uL (130-400); Red Blood Cell Count 3.69 10^6/uL (4.20-5.40); Red Cell Dist. Width 14.8 % (11.5-14.5); White Blood Cell Count 8.7 10^3/uL (4.8-10.8)
[2024-10-11] MEDS: DILAUDID 2 MG PO ×3 (05:48→23:46)
[2024-10-11 05:52] LABS: Blood Urea Nitrogen 7 mg/dl (7-17); Calcium 8.5 mg/dl (8.4-10.2); Carbon Dioxide 23 mmol/L (22-30); Chloride 108 mmol/L (98-107); Estimated Creatinine Clearance 69 ml/min; Glucose 100 mg/dl (70-99); Potassium 3.9 mmol/L (3.5-5.1); Sodium 139 mmol/L (135-145); eGFR > 60.00
[2024-10-11] MEDS: SPIRIVA RESPIMAT 2.5 MCG INH (07:49)
[2024-10-11] MEDS: NSS 1000 INF CATH (07:49)
[2024-10-11] MEDS: SYMBICORT 160/4.5 MCG INHALER INH (07:49)
--- NOTE | 2024-10-11 08:10 | W.PN.INTV ---
Today's Communication / Plan
Recommendations
tPA catheter now removed as of this morning
She is s/p stent in the left common iliac vein + external iliac vein and is s/p thrombectomy with AngioJet
Monitor for abdominal pain and hematuria (common side effects from above)
Pain control
prn antiemetics
Up OOB as tolerated
Continue heparin drip, therapeutic dosing for DVT
Transition to NOAC per primary team
Case management consult
Outpatient hematology evaluation for hypercoagulable workup
Wean down supplemental oxygen as tolerated while maintaining SpO2 88-95% --> If resting SaO2 <96% on room air or if unable to wean off supplemental oxygen, then check ambulatory pulse oximetry prior to discharge
Patient is stable for downgrade out of ICU to telemetry. This was confirmed with vascular surgery. No additional recommendations at this time. Bleaching Machine Operator/Pulmonary service will now sign off. Recommend outpatient pulmonary evaluation
John. please reconsult if there are any additional questions/concerns, or if patient's respiratory status deteriorates.
Assessment
-
Assessment: 74-year-old female with a past medical history of thyroid mass s/p thyroidectomy, history of COVID-19, history of appendicitis s/p appendectomy and a hiatal hernia who presents with 2 days of left lower extremity swelling and found to
have a DVT as an outpatient. She denies any recent travel, history of blood clots or recent hospitalizations. She is not immobile and has no family history of clotting disorders. She uses [facility] as an outpatient for COPD. In the ER she was
afebrile to 97.9 �F, pulse rate 89, respiratory rate 18, BP 160/74 and saturating 97% on room air. Labs showed leukocytosis to 12.2, fibrinogen 490, T. bili 1.6, and troponin negative at <0.012. The left lower extremity duplex ultrasound showed
extensive DVT from the left common femoral vein down to the posterior tibial vein. She was initially started on heparin drip and admitted to Med-Surg. Due to the extensive DVT, she had a CT venogram showing a small caliber left common iliac vein
as it courses posterior to the left common iliac artery raising concern for May Thurner syndrome. Vascular surgery then brought the patient to the OR for lytic catheter placement via the left popliteal vein which is infusing tPA into the left
common iliac vein. Patient then transferred to the ICU postoperatively and surgical garment fitter services consulted for additional management/recommendations.
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
Impression:
#Extensive left lower extremity DVT with concern for May Thurner syndrome s/p lytic catheter infusion into left common iliac vein which is being compressed by right common iliac artery (POD#1)
-On 10/11/2024, she underwent venogram with AngioJet mechanical thrombectomy with left common iliac vein + external iliac vein stent with EBL 50 cc and no complications (POD#0)
#Leukocytosis likely reactive due to above
#Acute respiratory failure with hypoxia on supplemental oxygen
#Elevated absolute eosinophil count (400 on 10/10/2024)
#Elevated T. bili
#History of COPD/emphysema with mild air trapping and moderately reduced gas exchange capacity on [facility] as an outpatient
#Former tobacco smoker (quit smoking in 2019, previously smoked 1 PPD x 50 years)
#History of lung nodules
#History of COVID-19
#Hiatal hernia
Plan:
- Peripheral left lower extremity duplex ultrasound on 10/09/2024 showed an extensive DVT from the left common femoral vein down to the PT vein. Vascular surgery consulted. CTA abdomen/pelvis on 10/10/2024 showed thrombosis of the left internal and
external iliac veins in the left common femoral and femoral veins with suspected May Thurner syndrome.
- Patient went to the OR on 10/10/2024 for placement of a lytic catheter, inserted via the left popliteal vein and infusing into the iliac vein. Continued tPA at 1 mg an hour with heparin through the sideport of the sheath at a fixed rate of 500
units/h.
- Patient went back to the OR today, lytic catheter is now removed and heparin drip at therapeutic dosing can now be resumed as per vascular surgery. Stent inserted into left common iliac + external iliac vein and she is s/p thrombectomy with
AngioJet; abdominal pain + hematuria are common side effects from this procedure
- Pain control
- Patient currently on a full liquid diet --> ADAT
- Continue with heparin drip
- Transition to NOAC by tomorrow, preferably with Eliquis
- Case management consult to assess affordability of Eliquis
- Outpatient evaluation with hematology for hypercoagulable workup
- Maintain SpO2 88-95% with supplemental oxygen and wean as tolerated (currently on 3 L/min - not on home O2)
- She is on Breztri as an outpatient, continue with Symbicort + Spiriva for now with prn albuterol
- Aspiration precautions
- If resting SaO2 <96% on room air or if unable to wean off supplemental oxygen, then check ambulatory pulse oximetry prior to discharge
- Maintain MAP>65
- Replete electrolytes with K>4, Mg>2
- Maintain euglycemia with goal BG 140-180
- Trend H/H and transfuse if needed to keep Hb>7g/dL; keep plt>50k given recent tPA infusion
- Incentive spirometer will be encouraged 10x per hour for at least 4 hrs a day
- DVT ppx: heparin gtt
Once she is discharged home, she should continue following up with our office with Dr. Lopez. Last visit on 01/09/2024 and she is due for her next LDCT chest for lung cancer screening (last done in 09/2023)
Patient is stable for downgrade out of ICU to telemetry. This was confirmed with vascular surgery. No additional recommendations at this time. Bleaching Machine Operator/Pulmonary service will now sign off. Thank you for allowing us to be involved in the care
of this patient. Please reconsult if there are any additional questions/concerns, or if patient's respiratory status deteriorates.
Data:
LLE Duplex US 10/09/2024: Extensive deep venous thrombosis of the left lower extremity. Left greater saphenous vein thrombus also noted.
CT angio abdomen/pelvis with/without contrast 10/11/2024:
No acute pathology of the abdomen or pelvis notified. No evidence of aortic dissection nor hematoma.
Left pelvic and groin DVT as described above. Stable.
Presumed left groin central venous catheter. New. Clinical correlation recommended
Findings suggesting prior benign granulomatous disease. Stable.
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 Stable too small to characterize hypodense bilateral renal lesion likely benign cysts.
Fat-containing umbilical hernia. No evidence of incarceration or circulation. Stable.
Mild diverticulosis. Stable.
Total time spent today was 57 minutes for this encounter. Time includes reviewing laboratory test/imaging results, reviewing pertinent medical records, obtaining and reviewing medical history, performing an appropriate exam, ordering medications,
tests and procedures. Time also includes documentation of this encounter, coordinating patient care and communicating with other healthcare professionals. Total time does not include separately billed tests performed on this date of service.
Subjective Dataa
Subjective Data
Date of Service:
Date of Service: October 11, 2024
Chief Complaint: Bleaching Machine Operator Follow Up
Subjective:
Patient went back to the OR today. Lytic catheter is now out. Stent placed in left common iliac + left external iliac vein and she is s/p thrombectomy with AngioJet. Patient feels well after coming back. Currently on 3 L/min nasal cannula
saturating 98% with heart rate 87 and BP 116/100. She has some abdominal discomfort which she was told is a common side effect from the procedure today. She otherwise denies chest pain, SOB, SOTOMAYOR, nausea, fevers or chills.
Review of Systems
General: Other (Negative unless mentioned above)
Objective Data
Data Reviewed
Vital Signs / I&O / Oxygen:
Vital Signs
Temp Pulse Resp BP Pulse Ox
98 F 82 18 127/57 95
10/11/24 07:25 10/11/24 08:00 10/11/24 08:00 10/11/24 08:00 10/11/24 08:00
Intake and Output
10/10/24 10/11/24 10/12/24
06:59 06:59 06:59
Intake Total 3016.4 / 3151.4 135 / 135
Output Total 1250 / 1250
Balance 1766.4 / 1901.4 135 / 135
SaO2 95
Nasal Cannula flow liters per 2
minute
Physical Exam
General: Respiratory Distress (negative), Comfortable, Pain (Pain in abdomen during movement), Chills (negative) and Sweats (negative)
HEENT: Normocephalic and Anicteric
Cardiovascular: S1-S2, Rub (negative) and Peripheral Edema (+2 pitting edema in left lower extremity; no edema on right lower extremity)
Respiratory: Wheeze (negative), Crackles (negative), Rhonchi (negative), Non-Labored Respirations and Stridor (negative)
GI: Soft, Non Distended, Tender (Grossly tender diffusely to palpation with no peritoneal signs) and Normal Bowel Sounds
Neurology: AO x 3 and Tremors (negative)
Skin: Warm, Dry, Cyanosis (negative) and Jaundice (negative)
Labs/Micro/Reports
Lab Data
10/11/24 04:58
10/11/24 04:58
Laboratory Results
10/10/24 10/10/24 10/10/24
09:51 11:30 17:30
PT 14.4 Cancelled Cancelled
INR 1.09 Cancelled Cancelled
APTT 183.0 H* Cancelled Cancelled
10/10/24 10/10/24 10/11/24
17:53 23:30 00:06
PT 15.0 H Cancelled 16.2 H
INR 1.15 Cancelled 1.27
APTT 35.8 H Cancelled 49.9 H
10/11/24
04:58
PT 16.2 H
INR 1.27
APTT 49.8 H
--- NOTE | 2024-10-11 08:29 | PTCARENOTE ---
pt aaox3. states some discomfort in back abd pain has improved. no pain med given due to pt going to OR. reviewed plan of care with pt. left pop sheath in place with heparin and alteplase running as ordered. ivf running as ordered. purewck in
place. report given to OR nurse. pt taken to OR.
--- NOTE | 2024-10-11 09:54 | W.IMMPOSTOP ---
Surgical Immed Post Op Note
-
Primary Surgeon: Adriano
Assisting Surgeon:
Pre-op Diagnosis:
May Thurner
LLE DVT
Post-op Diagnosis:
Same
Procedure Performed:
Venogram
Angiojet mechanical thrombectomy
IVUS
L CIV/EIV stent (Wall stent 18x90 post dilated to 14mm)
Anesthesia Type:
MAC
Estimated Blood Loss:
50
Complications:
none
Operative Findings:
11F sheath via L pop
Good angiographic result
--- NOTE | 2024-10-11 10:26 | CM ---
Initial assessment completed. Patient is a 74-year-old female with past medical history of prior appendicitis status post appendectomy and status post cholecystectomy presents to the emergency department with 2 days of left lower extremity swelling.
Patient for IVUS and potentially stenting today.
Patient resides w/ spouse and adult son in a 2STH- 12 steps to enter the home. Patient is independent w/ ADLs and ambulation, no DME identified or required. 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 Denies SNF/VN/PT hx. No current OP or
home services at this time.
Address, points of contacts and insurance verified
PCP: Dr. Tucker
Pharmacy: [facility]
Plan: Anticipate home; no needs
[2024-10-11] MEDS: SUBLIMAZE 25 MCG IV (10:38)
[2024-10-11] MEDS: HEPARIN 25000 UNITS/250 ML IV (10:43)
[2024-10-11] MEDS: CATHFLO/ACTIVASE INF CATH ×2 (10:55)
--- NOTE | 2024-10-11 10:56 | PTCARENOTE ---
pt received from OR awake states 02/18 pain in bilat groin pacu pain med given as ordered. left dp/pt pulses by Doppler left leg wrapped with lux bandage no drainage noted. foot cool to touch. ivf and heparin gtt started as ordered. pure wick
placed per pt request.
--- NOTE | 2024-10-11 14:57 | W.PN.HOSP.TC ---
Addendum entered and electronically signed by Mckenna Urena MD 10/11/24 15:51:
I saw and evaluated the patient independently. I reviewed the resident�s note and agree with findings and plan as documented by Dr. [facility].
GENERAL: well developed, well nourished, female in no apparent distress lying flat post vascular OR
HEENT: NC/AT--O2 NC [address]
HEART: regular rate and rhythm, +S1, +S2
LUNGS : clear to auscultation bilaterally
ABDOM: soft, nontender, nondistended, + bowel sounds
EXT: no cyanosis, clubbing, or edema right leg--left leg with edema from groin to foot
NEUROLOGIC: grossly intact
unprovoked DVT - New onset DVT, extensive, involving L internal and external iliac veins, left common femoral vein, popliteal vein, peroneal vein and posterior tibial vein. Possible May-Thurner syndrome--apprec vascular/awning maker and installer---s/p lytic
catheter placement x 2 in OR --Continue Heparin drip--CM to thomas Felder--OK for transfer out of ICU
DVT proph-- On heparin drip
Code status - Full code
Original Note:
Today's Communication/Plan
-
Continue heparin drip
Assessment / Plan
Assessment / Plan
74 y.o female with extensive unprovoked LLE DVT with CT A/P suggestive of May-Thurner syndrome.
L LE DVT:
- New onset DVT, extensive, involving L internal and external iliac veins, left common femoral vein, popliteal vein, peroneal vein and posterior tibial vein. 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
-s/p lytic catheter placement 10/10/24. s/p IVUS, mechanical thrombectomy and stent placement today.
-Appreciate vascular surgery
-Continue Heparin drip
COPD:
Stable. Not in acute exacerbation
-Budesonide-formoterol inhaler PRN
DVT ppx: On heparin drip
Code status - Full code
Anticipated Discharge: 24 - 48 hours
Subjective/Interval History
-
Date of Service: October 11, 2024
s/p Venogram, mechanical thrombectomy and stent placement
Objective Data
-
Labs:
Laboratory Results
10/11/24 10/11/24 10/11/24
04:58 12:00 18:00
WBC 8.7
Hgb 10.6 L
Hct 32.8 L
Plt Count 150 D
PT 16.2 H Cancelled
INR 1.27 Cancelled
APTT 49.8 H Cancelled Pending
Sodium 139
Potassium 3.9
Chloride 108 H
Carbon Dioxide 23
BUN 7
Creatinine 0.6
Glucose 100 H
Calcium 8.5
Vital Signs:
Vital Signs
Temp Pulse Resp BP Pulse Ox
98.7 F 91 18 116/100 92
10/11/24 11:00 10/11/24 14:00 10/11/24 14:00 10/11/24 14:00 10/11/24 14:00
I&O
10/10/24 10/11/24 10/12/24
06:59 06:59 06:59
Intake Total 3016.4 / 3151.4 949 / 949
Output Total 1250 / 1250
Balance 1766.4 / 1901.4 949 / 949
Review of Systems
-
History Source: Patient
Respiratory: Denies Trouble Breathing
Cardiac: Denies Chest Pain
Abdomen/GI: Reports Abdominal Pain; Denies Nausea, Vomiting, Diarrhea or Constipated
Genitourinary: Denies Dysuria or Difficulty Voiding
Physical Exam
-
General: Well Developed, Well Nourished, No Apparent Distress and Comfortable; Negative Respiratory Distress
HEENT: Normocephalic, Atraumatic, Moist Mucous Membranes and Anicteric
Respiratory: Clear to Auscultation and Non Labored Respirations; Negative Wheezes, Rales, Rhonchi or Crackles
Cardiac: Regular Rhythm and S1/S2; Negative Murmur or Rub
GI: Soft, Nondistended and Tender (LLQ)
Musculoskeletal: No Clubbing, No Cyanosis and Edema, Left Lower Extrem; Negative Edema, Right Lower Extrem
Skin: Warm and Dry; Negative Rash
Neuro: Awake, Alert and Oriented
Psych: Calm
[2024-10-11 17:24] LABS: APTT 112.2 Sec (23.4-35.0)
[2024-10-11] MEDS: SYMBICORT 160/4.5 MCG INHALER 2 PUFF INH (20:12)
--- NOTE | 2024-10-11 20:18 | PTCARENOTE ---
assumed care, Ox3, RODGERS, denies pain, NSR on the monitor, +1 L leg, doppler L pedal, lungs clear on RA 95%, BSx4, yellow output in canister PW removed encouraged pt to ambulate to BR or BSC, skin per worklist, L leg lux wrapped, 22G L wrist, 20G RAC,
Hep gtt, call pagan within reach, pt able to make needs known, otherwise refer to documentation.
[2024-10-12 00:20] LABS: APTT 78.2 Sec (23.4-35.0)
[2024-10-12 04:16] VITALS: BP 127/54
[2024-10-12 06:00] VITALS: BMI 25.2
[2024-10-12 06:15] LABS: Hematocrit 31.2 % (37.0-47.0); Hemoglobin 9.9 g/dL (12.0-16.0); Mean Corp Hgb Conc. 31.7 g/dL (33.0-37.0); Mean Corpuscular Hgb 28.4 pg (27.0-31.0); Mean Corpuscular Volume 89.7 fL (81.0-99.0); Mean Platelet Volume 10.9 fL (7.4-10.4); Platelet Count 151 10^3/uL (130-400); Red Blood Cell Count 3.48 10^6/uL (4.20-5.40); Red Cell Dist. Width 14.5 % (11.5-14.5); White Blood Cell Count 10.9 10^3/uL (4.8-10.8)
[2024-10-12 06:30] LABS: APTT 129.7 Sec (23.4-35.0)
[2024-10-12 06:49] LABS: ALT (SGPT) 15 U/L (0-35); AST (SGOT) 25 U/L (14-36); Alkaline Phosphatase 92 U/L (38-126); Blood Urea Nitrogen 16 mg/dl (7-17); Calcium 8.9 mg/dl (8.4-10.2); Carbon Dioxide 26 mmol/L (22-30); Chloride 108 mmol/L (98-107); Estimated Creatinine Clearance 69 ml/min; Glucose 154 mg/dl (70-99); Magnesium 2.1 mg/dl (1.6-2.3); Phosphorus 3.8 mg/dl (2.5-4.5); Potassium 4.2 mmol/L (3.5-5.1); Sodium 137 mmol/L (135-145); Total Bilirubin 0.5 mg/dl (0.2-1.3); Total Protein 5.1 g/dl (6.3-8.2); eGFR > 60.00
[2024-10-12] MEDS: SPIRIVA RESPIMAT 2.5 MCG 2 PUFF INH (07:23)
[2024-10-12] MEDS: SYMBICORT 160/4.5 MCG INHALER 2 PUFF INH (07:23)
[2024-10-12 08:03] VITALS: BP 110/56
--- NOTE | 2024-10-12 08:17 | W.PN.VS ---
Today's Communication / Plan
-
See below.
Assessment/Plan
-
Assessment: 74-year-old female with extensive left lower extremity DVT status post Left lower extremity venogram, placement of thrombolytic catheter on 10/10/24 and removal of lytic catheter, venogram, AngioJet mechanical thrombectomy, left common
iliac vein/external iliac vein stent placement on 10/11/24
Plan:
From a vascular surgical perspective can transition off heparin infusion to oral anticoagulation per the primary team's choosing
Will initiate aspirin 81 mg p.o. daily given stent placement
Will place follow-up in discharge instructions
Recommend continued compression via either Shiv wrap or patient can obtain in the outpatient setting compression stockings, recommend base of toe to upper thigh compression
We will sign off please call with questions or concerns
Subjective Data
-
Date of Service: October 12, 2024
Patient seen and examined at bedside, offers no complaints. Reports well-managed postoperative pain at left lower extremity behind the knee puncture site, denies swelling. Tolerating p.o. diet.
Objective Data
-
Vital Signs
Temp Pulse Resp BP Pulse Ox
97.8 F 82 16 127/54 98
10/12/24 07:00 10/12/24 07:26 10/12/24 07:26 10/12/24 04:16 10/12/24 00:29
Intake and Output
10/11/24 10/12/24 10/13/24
06:59 06:59 06:59
Intake Total 3016.4 / 3151.4 1752 / 1761
Output Total 1250 / 1250 300 / 300
Balance 1766.4 / 1901.4 1452 / 1461
Intake:
Oral fluids 520 / 520 930 / 930
IV fluids (Total) 2496.4 / 2631.4 822 / 831
Altapase 72.6 / 76.6 4 / 4
Heparin 162.8 / 167.8 212 / 221 9 / 9
NSS @ 46 ML/HR 836 / 882 46 / 46
NSS @80 ML HR 1425 / 1505 560 / 560
Output:
Urine, Voided 1250 / 1250 300 / 300
Other:
Number of approximated MODERATE 1 2
amounts of urine
Lab Results
10/12/24 05:28
10/12/24 05:28
Calcium 8.9 mg/dl (8.4-10.2) 10/12/24 05:
Phosphorus 3.8 mg/dl (2.5-4.5) 10/12/24 05:
Magnesium 2.1 mg/dl (1.6-2.3) 10/12/24 05:
Total Bilirubin 0.5 mg/dl (0.2-1.3) D 10/12/24 05:
Direct Bilirubin 0.2 mg/dl (0.0-0.4) 10/11/24 00:06
Direct Bilirubin Cancelled 10/11/24 00:06
AST 25 U/L (14-36) 10/12/24 05:28
ALT 15 U/L (0-35) 10/12/24 05:28
Alkaline Phosphatase 92 U/L (38-126) 10/12/24 05:28
Total Protein 5.1 g/dl (6.3-8.2) L 10/12/24 05:28
Albumin 3.0 g/dl (3.5-5.0) L 10/12/24 05:28
Physical Exam
-
No apparent distress, resting in bed comfortably
No tachycardia
No dyspnea on room air
ABD flat, nontender, nondistended
Left lower extremity puncture site CDI, no evidence of edema or hematoma
Left foot warm
--- NOTE | 2024-10-12 08:29 | PTCARENOTE ---
Received pt awake and alert.Speech is appropriate.Denies pain at this time.Gait is steady.SR noted.Heparin gtt infusing as ordered.Lungs CTA.POX 95% on RA.Appetite good.No BM.Voiding in bathroom.Skin integrity as documented.Plan of care discussed
with pt.
[2024-10-12] MEDS: HEPARIN 25000 UNITS/250 ML IV (09:17)
[2024-10-12] MEDS: MIRALAX 17 GRAMS PO (11:04)
[2024-10-12] MEDS: ASPIR LOW (ENTERIC COATED) 81 MG PO (11:04)
[2024-10-12] MEDS: SENOKOT-S 1 TABLET PO (11:04)
[2024-10-12] MEDS: ELIQUIS 10 MG PO (11:04)
--- NOTE | 2024-10-12 12:00 | PTCARENOTE ---
Pt assessed.No change in assessment noted.Heparin discontinued as ordered.
--- NOTE | 2024-10-12 12:37 | CM ---
CM following re: discharge planning.
Reviewed pt's chart, met with pt.
Pt is status post Left lower extremity venogram, external iliac vein stent placement on 10/11/24. Per vascular surgery pt is medically stable to be discharged today. Pt is aware, expressed her agreement and she stated her is coming to
transport home.
IMM reviewed, placed on chart, pt has a copy.
Eliquis 5mg BID guzman checked with [facility] pharmacist, covered 100%, no co-pay. Free coupon given to the pt.
Pt reports she is independent with functional ability and she will not need any after care VN services. Pt reports her daughter is RN and she will help if needed.
D/C plan: home no needs. to transport
--- NOTE | 2024-10-12 15:17 | W.PN.HOSP.TC ---
Today's Communication/Plan
-
Stop heparin drip. Start Eliquis loading dose for 7 days. Asp 81. Continue compression of LLE. Stable for DC.
Assessment / Plan
Assessment / Plan
74 y.o female with extensive unprovoked LLE DVT with CT A/P suggestive of May-Thurner syndrome.
L LE DVT:
- New onset DVT, extensive, involving L internal and external iliac veins, left common femoral vein, popliteal vein, peroneal vein and posterior tibial vein. May-Thurner syndrome.
-s/p lytic catheter placement 10/10/24. s/p IVUS, mechanical thrombectomy and stent placement 10/11/2024.
-Appreciate vascular surgery
-Transition from heparin drip to Eliquis 10mg BID x 7 days
-No history of GIB or other disordered bleeding. Hemoccult negative
-Stable for discharge
COPD:
Stable. Not in acute exacerbation
-Budesonide-formoterol inhaler PRN
DVT ppx: On heparin drip
Code status - Full code
Anticipated Discharge: Today
Subjective/Interval History
-
Date of Service: October 12, 2024
No acute overnight events
Objective Data
-
Labs:
Laboratory Results
10/12/24 10/12/24
05:28 12:00
WBC 10.9 H
Hgb 9.9 L
Hct 31.2 L
Plt Count 151
APTT 129.7 H Pending
Sodium 137
Potassium 4.2
Chloride 108 H
Carbon Dioxide 26
BUN 16
Creatinine 0.6
Glucose 154 H
Calcium 8.9
Total Bilirubin 0.5 D
AST 25
ALT 15
Alkaline Phosphatase 92
Vital Signs:
Vital Signs
Temp Pulse Resp BP Pulse Ox
97.8 F 75 17 110/56 95
10/12/24 07:00 10/12/24 11:00 10/12/24 11:00 10/12/24 08:03 10/12/24 08:00
I&O
10/11/24 10/12/24 10/13/24
06:59 06:59 06:59
Intake Total 3016.4 / 3151.4 1752 / 1761 36 / 36
Output Total 1250 / 1250 300 / 300
Balance 1766.4 / 1901.4 1452 / 1461 36 36
Review of Systems
-
History Source: Patient
Respiratory: Denies Trouble Breathing
Cardiac: Denies Chest Pain
Abdomen/GI: Denies Bloody Stools or Black Stools
Hematologic / Lymphatic: Denies Bleeding
Physical Exam
-
General: Well Nourished, No Apparent Distress and Comfortable; Negative Respiratory Distress
HEENT: Normocephalic, Atraumatic, Moist Mucous Membranes and Anicteric
Respiratory: Clear to Auscultation and Non Labored Respirations; Negative Wheezes, Rales, Rhonchi or Crackles
Cardiac: Regular Rhythm and S1/S2; Negative Murmur, Rub or Calf Tenderness
Musculoskeletal: No Cyanosis and Edema, Left Lower Extrem
Skin: Warm and Dry
Neuro: Awake, Alert and Oriented
Psych: Calm
--- NOTE | 2024-10-12 15:43 | W.PN.UPDATE ---
Update Note
Progress Note Update
Seen and examined by me independently in collaboration with the medical oncologist.
Lab data and imaging data reviewed.
Addendum as below :
Patient with compressive dressing to the left leg. She is improvement in the left leg. Denies any pain in the left leg. No chest pain or shortness of breath.
Finished 48 hours of IV heparin. Transition to Eliquis. Check the cost of Eliquis prior to discharge.
Vascular input noted-cleared for discharge from their standpoint. Antiplatelets added because of stent placement.
H&H drop noted but no obvious external bleeding. Patient never had a colonoscopy nor any GI bleed. Will check a Hemoccult test prior to discharge.
If heme test negative will discharge patient home. Follow-up with vascular surgery and PCP.
SONA stockings left leg upon discharge.
Total time of discharge 32 minutes
--- NOTE | 2024-10-12 17:34 | W.DCSUMMARY ---
Discharge Summary
Discharge Data
Date of Admission: 10/10/24
Date of Discharge: 10/12/24
-
Pending Results: No
Hospital Course
Discharging Physician : Katarina Vargas MD., Rajiv Lopez MD.
Disposition : Home
Primary care physician :
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
Chronic Discharge diagnosis : COPD
Hospital Course :
HPI:
74-year-old female with above past medical history who presented to the emergency department with 2 days of left lower extremity swelling with mild erythema and left inguinal pain. She was evaluated by her physician who recommended an ultrasound
that revealed an extensive LLE DVT, for which she was then referred to the ED. She reported no prior DVT history, no personal or family history of clotting/bleeding disorders. No hx of malignancy, and no recent hospitalizations, immobilization or
travel.
In the emergency department she was afebrile, blood pressure was 134/67 with a pulse of 94 and she was satting at 98% on room air. ECG showed normal sinus rhythm at a rate of 80. Troponin was 0.012. CBC was unremarkable with a white count of
12.2. Electrolytes BUN/creatinine were all in normal range. LFTs were normal except for slight elevation in total bilirubin to 1.6. She had a CT of the abdomen pelvis with contrast showing DVT in the left internal and external iliac veins which
have expanded, suspicion for May Thurner's. Heparin was started, and patient underwent lytic catheter placement shortly. Procedure was tolerated well. Patient did experience one episode of abdominal pain, CT scan showed not acute abnormalities, and
abdominal pain resolved shortly with treatment. She then underwent mechanical thrombosis with stent/balloon placement with no complications. She continued to remain stable throughout stay.
She was assessed to be stable for discharge to her home with the following instructions:
-Be sure to follow up with your vascular surgeon shortly.
-Please be sure to keep up with routine age/risk appropriate screening, including COLONOSCOPY, mammogram, etc.
-Continue taking Eliquis 10mg twice daily through 10/18/2024.
-After completing 10mg dosing of Eliquis, start taking Eliquis 5mg tablets twice daily, starting 10/19/2024.
-Please do not do strenuous activity or lift anything greater than 10 pounds for 2 weeks.
-Your follow-up venous ultrasound is scheduled on 11/09/2024 at 1 and 2 PM here at [facility]
Important imaging findings :
Peripheral venous LLE US 10/09/2024:
Occlusive thrombus is seen in the left common femoral vein, popliteal vein, peroneal vein and posterior tibial vein. There is occlusive thrombus in the mid and distal left femoral vein and nonocclusive thrombus in the proximal left femoral vein.
Nonocclusive thrombus is also seen in the left greater saphenous vein
CT abdomen and pelvis w/wo IV contrast 10/10/2024:
CHEST: 6 mm pulmonary nodule in the right lower lobe (series 201, image 6). Waxing and waning pulmonary nodules have been noted on multiple previous CT examinations.
ABDOMEN:
Surgically absent gallbladder. Mild extrahepatic bile duct prominence, commonly seen status post cholecystectomy. Numerous calcified splenic granulomas. The liver, pancreas, and bilateral adrenal glands are unremarkable. 2.5 cm exophytic macroscopic
fat attenuation mass arising from the midpole of the right kidney is compatible with a renal angiomyolipoma. No hydronephrosis.
The abdominal aorta is normal in caliber. Severe aortobiiliac calcified atherosclerosis.
Moderate fat-containing umbilical hernia.
Colonic diverticulosis, without evidence for acute diverticulitis. No bowel wall thickening, obstruction, or inflammation. No extraluminal free air, fluid collection, or ascites.
PELVIS:
Expansile thrombus of the left internal and external iliac veins. Thrombus also noted in the left common femoral and femoral veins. Small caliber of the left common iliac vein as it courses posterior to the left common iliac artery suggesting
possibility of extrinsic compression and May Thurner syndrome. The inferior vena cava is patent. The right iliac and femoral veins are patent.
Prominence of the bilateral periuterine and adnexal veins, which can be seen with pelvic congestion syndrome. Slight asymmetric thickening of the right lateral urinary bladder wall.
SKELETON:
Chronic mild compression fracture of the L5 vertebral body. Chronic mild degenerative changes of the spine, bilateral sacroiliac joints, hips, and symphysis pubis
CT Abd/pelv angio w/wo IV contrast 10/11/2024:
Pre-IV contrast imaging shows no evidence of aortic intramural hematoma. There is moderate atherosclerotic vascular disease.
Postcontrast imaging shows: Shows no evidence of aortic dissection. The celiac axis, SMA and renal arteries are patent.
Lung Bases: The lungs bases are clear.
Bone: Osseous structures of the abdomen and pelvis show mild gentle disease. There is a mild compression fracture of L5. This is stable.
Abdomen and pelvis: The liver, spleen, and pancreas are unremarkable aside from numerous punctate benign calcifications consistent with prior benign granulomatous disease.. The gallbladder has been removed. The adrenal glands and kidneys are
unremarkable aside from a fat density right renal lesion consistent a benign angiomyolipoma measuring 2.3 cm. There are bilateral too small to characterize hypodense renal lesions likely benign cysts.. The abdominal aorta is normal caliber. No
significant lymphadenopathy is noted. Bowel loops are normal caliber. The terminal ileum and appendix are within normal limits. There is mild diverticulosis.
There is a fat-containing umbilical hernia measuring 2.4 cm. There is no evidence of incarceration or strangulation.
No free fluid is noted. The urinary bladder is unremarkable.
There is left internal and external iliac venous thrombosis extending into the left common femoral vein with a left groin central venous catheter. Its tip ends just beyond the IVC bifurcation in the distal IVC. The caliber of the left common iliac
vein is small in comparison 2 the right as it courses posterior to the left common iliac artery. There is mild stranding about the left groin vessels likely due to recent line placement. No focal fluid collection to suggest hematoma is noted
Procedure findings :
1) Ultrasound-guided access left popliteal vein. Left lower extremity venogram. Iliocaval venogram. Placement of thrombolytic catheter.
PREOPERATIVE DIAGNOSIS: Left lower extremity iliofemoral DVT.
POSTOPERATIVE DIAGNOSIS: Left lower extremity iliofemoral DVT.
2) Central venogram, mechanical thrombosis, iliocaval IVUS, stent angioplasty of left common and external iliac vein, balloon angioplasty of left common femoral vein:
PREOPERATIVE DIAGNOSES:
1. May-Thurner.
2. Left lower extremity DVT.
POSTOPERATIVE DIAGNOSES:
1. May-Thurner.
2. Left lower extremity DVT.
Discharge Plan
-
Patient Disposition: Home (Routine Discharge)
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
Condition: Good
Diet: As tolerated
Activity: No strenuous activity
Additional Activity: Please do not do strenuous activity or lift anything greater than 10 pounds for 2 weeks.
Driving Restrictions: No driving for 24 hours
Others Tests: Your follow-up venous ultrasound is scheduled on 11/09/2024 at 1 and 2 PM here at [facility]
Stand Alone Forms: DC Instr - Vascular OR
Referrals:
Grace Bryant PA-C [Specified Professional Personl] - 11/11/24 1:30 pm (This is your follow-up for vascular surgery)
Asa Tucker, [Family Provider] - in less than 1 week
Additional Discharge Medication Instructions: Be sure to follow up with your vascular surgeon shortly.
Please be sure to keep up with routine age/risk appropriate screening, including COLONOSCOPY, mammogram, etc.
Continue taking Eliquis 10mg twice daily through 10/18/2024.
After completing 10mg dosing of Eliquis, start taking Eliquis 5mg tablets twice daily, starting 10/19/2024.
Prescriptions:
New
aspirin 81 mg Tablet,Delayed Release (Dr/Ec)
81 mg PO DAILY Qty: 90 0RF
Eliquis 5 mg Tablet
10 mg PO BID Qty: 26 0RF
Eliquis 5 mg tablet
5 mg PO BID 30 Days Qty: 60 0RF
Continued
Breedupristinephere 160-9-4.8 mcg/actuation Hfa Aerosol Inhaler
2 inh INHALATION BID
Discharge Orders:
Discharge Patient (As Directed); Ordered 10/12/24
Ordered By: Katarina Vargas
Discharge Date and Time
Print Language: LAO
[2024-10-12 18:08] VITALS: BP 97/72
== END 2024-10-12 18:33 | disposition home or self-care (01) | DRG 271 ==
LOC: ICU 04:22
PROVIDERS: Internal Medicine; Nurse Practitioner Family; Student in an Organized Health Care Education/Training Program; ADMITTING PHYSICIAN Internal Medicine; ATTENDING PHYSICIAN Internal Medicine; CONSULT PHYSICIAN Student in an Organized Health Care Education/Training Program; EMERGENCY PHYSICIAN Emergency Medicine; FAMILY PHYSICIAN Family Medicine; OTHER PHYSICIAN Internal Medicine Critical Care Medicine
PROC: 3E04317 Introduction of Other Thrombolytic into Central Vein, Percutaneous Approach (ICD-10-PCS; 2024-10-10)
PROC: 04FL3Z0 Fragmentation of Left Femoral Artery, Percutaneous Approach, Ultrasonic (ICD-10-PCS; 2024-10-10)
PROC: 067G3DZ Dilation of Left External Iliac Vein with Intraluminal Device, Percutaneous Approach (ICD-10-PCS; 2024-10-11)
PROC: 067D3DZ Dilation of Left Common Iliac Vein with Intraluminal Device, Percutaneous Approach (ICD-10-PCS; 2024-10-11)
PROC: 067N3ZZ Dilation of Left Femoral Vein, Percutaneous Approach (ICD-10-PCS; 2024-10-11)
PROC: 06CG3ZZ Extirpation of Matter from Left External Iliac Vein, Percutaneous Approach (ICD-10-PCS; 2024-10-11)
DX: I82.422 Acute embolism and thrombosis of left iliac vein (principal); M48.56XA Collapsed vertebra, not elsewhere classified, lumbar region, initial encounter for fracture; I82.412 Acute embolism and thrombosis of left femoral vein; I82.432 Acute embolism and thrombosis of left popliteal vein; I82.452 Acute embolism and thrombosis of left peroneal vein; I82.442 Acute embolism and thrombosis of left tibial vein; J44.9 Chronic obstructive pulmonary disease, unspecified; D17.71 Benign lipomatous neoplasm of kidney; K42.9 Umbilical hernia without obstruction or gangrene; Z79.01 Long term (current) use of anticoagulants
CPT/HCPCS: 36005; 37212; 74174; 75820; 80048; 80053; 82248; 83605; 83735; 84100; 84484; 85014; 85018; 85025; 85027; 85384; 85610; 85730; 93005; 94640; 96365; 96366; 99285; J2997; Q9967

== ENCOUNTER → 2024-11-09 12:56 | Outpatient (REF) | payer OTHER, SELFPAY | LOC: RAD 12:56 | PROVIDERS: ATTENDING PHYSICIAN Surgery Vascular Surgery; FAMILY PHYSICIAN Family Medicine | DX: I82.422 Acute embolism and thrombosis of left iliac vein (principal) | CPT/HCPCS: 93971; 93978 ==

== ENCOUNTER → 2024-11-23 16:12 | Outpatient (REF) | payer OTHER, SELFPAY | LOC: RAD 16:12 | PROVIDERS: ATTENDING PHYSICIAN Physician Assistant; FAMILY PHYSICIAN Family Medicine | DX: I87.1 Compression of vein (principal); I82.402 Acute embolism and thrombosis of unspecified deep veins of left lower extremity | CPT/HCPCS: 74174; Q9967 ==

== ENCOUNTER → 2025-06-04 10:49 | Outpatient (REF) | payer OTHER, SELFPAY | LOC: HWRAD 10:49 | PROVIDERS: ATTENDING PHYSICIAN Internal Medicine Critical Care Medicine; FAMILY PHYSICIAN Family Medicine | DX: R91.1 Solitary pulmonary nodule (principal) | CPT/HCPCS: 71250 ==

== ENCOUNTER → 2025-06-17 10:29 | Outpatient (REF) | payer OTHER, SELFPAY | LOC: RAD 10:29 | PROVIDERS: ATTENDING PHYSICIAN Physician Assistant; FAMILY PHYSICIAN Family Medicine | DX: I87.1 Compression of vein (principal); I82.422 Acute embolism and thrombosis of left iliac vein | CPT/HCPCS: 93971; 93978 ==